=== PATIENT | male | born 1970 | race Caucasian/White ===

== ENCOUNTER 2017-10-01 15:02 | Emergency (ER) | payer SELFPAY ==
[~2017-10-01] VITALS: Ht 195.6 cm; Wt 111.1 kg
== END 2017-10-01 18:13 | disposition home or self-care (01) ==
LOC: ED 15:02
PROC: 0HQFXZZ Repair Right Hand Skin, External Approach (ICD-10-PCS; principal; 2017-10-01)
DX: S61.011A Laceration without foreign body of right thumb without damage to nail, initial encounter (principal); S61.212A Laceration without foreign body of right middle finger without damage to nail, initial encounter; I10 Essential (primary) hypertension; Z88.5 Allergy status to narcotic agent; W26.8XXA Contact with other sharp object(s), not elsewhere classified, initial encounter
CPT/HCPCS: 12002; 99282

== ENCOUNTER 2021-06-21 06:35 | Emergency (ER) | payer SELFPAY ==
[~2021-06-21] VITALS: Ht 195.6 cm; Wt 122.5 kg
--- OUTSIDE RECORDS SUMMARY | 2021-06-21 06:42 | XMS ---
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 Deisy has no Care Guidelines for this patient. Donald VISIT COUNT (12 MO.) 1 DAVINA Henry TOTAL 1 NOTE: Visits indicate total known visits. ED/C VISIT TRACKING (12 MO.) 06/21/2021 06:35 DAVINA Martinez [place] TYPE: Emergency COMPLAINT: - FLU SYMPTOMS INPATIENT VISIT TRACKING (12 MO.) No inpatient visits to display in this time frame [id number]
[2021-06-21] MEDS ORDERED: ONDANSETRON ODT8 MG PO (09:59)
== END 2021-06-21 10:32 | disposition home or self-care (01) ==
LOC: ED 06:35
DX: U07.1 COVID-19 (principal); I10 Essential (primary) hypertension; Z88.5 Allergy status to narcotic agent
CPT/HCPCS: 71045; 80053; 85025; 99283-25; A9270; C9803; J7030; M0245; U0003